=== PATIENT | male | born 1965 | race Native Hawaiian/Other Pacific Islander ===

== ENCOUNTER 2019-03-06 17:49 | Emergency (ER) | payer OTHER ==
[~2019-03-06] VITALS: Ht 180.3 cm; Wt 93.0 kg
[2019-03-06 19:05] VITALS: BP 145/88; TEMP 97.7
== END 2019-03-06 19:13 | disposition home or self-care (01) ==
LOC: ED 17:49
DX: S43.402A Unspecified sprain of left shoulder joint, initial encounter (principal); S00.83XA Contusion of other part of head, initial encounter; S09.90XA Unspecified injury of head, initial encounter; R51 Headache; Y35.91XA Legal intervention, means unspecified, law enforcement official injured, initial encounter
CPT/HCPCS: 99283